=== PATIENT | male | born 1995 | race Two or more races ===

== ENCOUNTER 2020-12-14 23:09 | Emergency (ER) | payer OTHER, MEDICAID, SELFPAY ==
[2020-12-14 23:15] VITALS: BP 129/88; BP 132/88; PULSE 82; PULSE 92; RESP 14; O2SAT 100; O2SAT 99; BMI 20.9
--- NOTE | 2020-12-14 23:30 | ED_ITS ---
HPI - Animal Bite General Chief Complaint: Animal Bite Stated Complaint: DOG BITE Time Seen by Provider: 12/14/20 23:28 Source: patient Mode of arrival: EMS History of Present Illness HPI narrative: This is a 25-year-old male who presents after receiving a stated unprovoked dog bite from a rescue dog that he is unclear as to the vaccination status. He states that animal Control and police arrived and took the dog away from the home. Otherwise, patient is having pain at the site of the dog bites. Related Data Previous Rx's Medication Instructions Recorded doxycycline monohydrate 100 mg PO BID 14 Days #28 cap 12/14/20 Allergies Allergy/AdvReac Type Severity Reaction Status Date / Time amoxicillin Allergy Hives Verified 12/14/20 23:19 Review of Systems Review of Systems: Pertinent positives and negatives as stated in HPI 10 point review of systems otherwise negative. PMFSH Past Medical History Source: nursing notes reviewed Social History Social History Advance Directives: No Advance Directives Information Provided: No Physical Exam Vital Signs: Vital Signs: Last Vital Signs Temp 97.9 F 12/15/20 00:00 Pulse 70 12/15/20 00:00 Resp 18 12/15/20 00:00 BP 118/67 12/15/20 00:00 Pulse Ox 97 12/15/20 00:00 Body Mass Index 20.9 VITAL SIGNS: Reviewed. GENERAL: Well developed, well nourished, in no acute distress. HEAD: Normocephalic/atraumatic, superficial flap laceration noted to the right lower chin that is hemostatic NOSE: Nares patent bilateral OROPHARYNX: no oral lesions noted, posterior pharynx clear NECK: Supple, no adenopathy LUNGS: Normal breath sounds. No adventitious sounds or accessory muscle use. SpO2<97> CARDIOVASCULAR: Regular rate and rhythm without noted murmurs, no JVD or lower extremity edema. ABDOMEN: Soft, non-tender, non-distended with bowel sounds. No rigidity. No guarding. No palpable masses or hernias noted LEFT UPPER EXTREMITY: There are multiple puncture/bite patterson along the left forearm with associated contusion and ecchymosis, full range of motion intact, hemostatic lacerations NEUROLOGIC: Alert and oriented x 4. Strength and sensation to light touch were grossly intact x 4. Course Course Course Narrative: This is a 25-year-old male with history and clinical presentation consistent with dog bite injury to the face and left upper extremity by an unknown vaccinated status. Patient received empiric doxycycline (allergic to amoxicillin) as well as initial rabies immunoglobulin and vaccination. Wounds were approximated without complications please refer to the procedure note for the details. And information was provided to the patient with regards to follow-up rabies vaccination schedule and instructed to return to the emergency department should he develop any fevers, chills, drainage from the sites of the wounds. MDM - Animal Bite Lab Data Result diagrams: 12/15/20 01:43 12/15/20 01:43 Labs: Lab Results 12/15/20 12/15/20 Range/Units 01:43 01:43 WBC 9.5 (4.8-10.8) X10*3/uL RBC 4.42 L (4.60-5.80) X10*6/uL Hgb 14.0 (14.0-18.0) g/dl Hct 40.9 L (42-52) % MCV 92.5 (80-98) fL MCH 31.7 (27.0-33.0) pg MCHC 34.2 (31.0-36.0) g/dl RDW 11.0 (11.0-16.0) % Plt Count 191 (160-400) X10*3/uL MPV 10.2 (9.4-12.4) fL Immature Gran % (Auto) 0.2 (0.0-0.4) % Neut % (Auto) 74.0 H (45-73) % Lymph % (Auto) 17.4 L (20-40) % [place] % (Auto) 7.2 (2-11) % Eos % (Auto) 1.0 (0-4) % Baso % (Auto) 0.2 (0-2) % Lymph # (Auto) 1.7 (1.2-4.9) X10*3/uL [place] # (Auto) 0.7 (0.1-1.2) X10*3/uL Eos # (Auto) 0.1 (0.0-0.4) X10*3/uL Baso # (Auto) 0.0 (0.0-0.2) X10*3/uL Abs Immat Gran (auto) 0.02 (0.00-0.03) X10*3/uL Absolute Neuts (auto) 7.0 (2.0-8.3) X10*3/uL Absolute Nucleated RBC 0.000 (0.0-0.012) X10*3/uL Nucleated RBC % (auto) 0.0 (0.0-0.2) /100WBC Sodium 139 (135-145) mmol/L Potassium 3.9 (3.3-5.1) mmol/l Chloride 104 (96-108) mmol/L Carbon Dioxide 24 (22-29) mmol/L Anion Gap 15 (12-20) BUN 11 (9-16) mg/dL Creatinine 0.81 (0.5-1.4) mg/dL Estim Creat Clear Calc 129.4 Estimated GFR > 60 Random Glucose 93 (60-115) mg/dL Calcium 8.8 (8.4-10.2) mg/dL Total Bilirubin 0.7 (0.0-1.0) mg/dL AST 19 (5-37) U/L ALT 18 (0-40) U/L Alkaline Phosphatase 77 (39-117) U/L Total Protein 6.4 L (6.5-8.0) g/dL Albumin 4.1 (3.5-5.0) g/dL Discharge Plan Discharge Clinical Impression: Rabies contact Dog bite Qualifiers: Encounter type: initial encounter Qualified Code(s): W54.0XXA - Bitten by dog, initial encounter Patient Disposition: Home, Self-Care Instructions: Rabies Immune Globulin (By injection), Rabies Vaccine (By injection), Rabies (ED) Additional Instructions: Please return to the ER if you develop any worsening of pain, fevers, chills, drainage from the bite patterson. Follow-up with your primary care provider or this emergency room for removal of your sutures in 5-7 days. Prescriptions: New doxycycline monohydrate 100 mg capsule 100 mg PO BID 14 Days Qty: 28 RF: 0 Referrals: Physician,Unknown [Primary Care Provider] - 2 days (Final re-evaluation and management for dog bite and rabies treatment started.)
--- NOTE | 2020-12-14 23:39 | XR_ITS ---
EXAMINATION: XR FOREARM, LEFT CLINICAL INFORMATION: Dog bite with pain on movement question radial fracture COMPARISON: None TECHNIQUE: AP and lateral views of the left forearm were obtained. FINDINGS: The bones and soft tissues are normal aside from mild soft tissue swelling around the mid distal third of the forearm. No fracture. No foreign body seen. Imaged portions of the elbow and wrist are unremarkable. XR/XR forearm LT 2V IMPRESSION: No bone abnormality is seen. There is disruption of soft tissues as described above.
[2020-12-15] VITALS: BP 118/67; PULSE 70; RESP 18; TEMP 36.6; O2SAT 97
[2020-12-15] MEDS: Acetaminophen 325 MG TABLET 975 MG PO (00:05)
[2020-12-15] MEDS: Ketorolac Tromethamine 15 MG/ML VIAL IM (00:09)
[2020-12-15] MEDS: Lidocaine HCl 2 % MPF 5 ML VIAL 10 ML INFILTRATI ×2 (00:10→01:02)
[2020-12-15 01:53] LABS: MANUAL DIFF FLAG NO
[2020-12-15 01:55] LABS: Basophils Percent Auto 0.2 % (0-2); Eosinophils Absolute Auto 0.1 X10*3/uL (0.0-0.4); Hematocrit 40.9 % (42-52); Imm Gran Abs Auto 0.02 X10*3/uL (0.00-0.03); Imm Gran Pct Auto 0.2 % (0.0-0.4); Lymphocytes Absolute Auto 1.7 X10*3/uL (1.2-4.9); Lymphocytes Percent Auto 17.4 % (20-40); Mean Corpuscular HGB Conc 34.2 g/dl (31.0-36.0); Mean Corpuscular Hemoglobin 31.7 pg (27.0-33.0); Mean Corpuscular Volume 92.5 fL (80-98); Mean Platelet Volume 10.2 fL (9.4-12.4); Monocytes Absolute Auto 0.7 X10*3/uL (0.1-1.2); Monocytes Percent Auto 7.2 % (2-11); Platelet Count 191 X10*3/uL (160-400); Red Blood Count 4.42 X10*6/uL (4.60-5.80); White Blood Count 9.5 X10*3/uL (4.8-10.8)
[2020-12-15 02:00] VITALS: BP 115/59; PULSE 67; RESP 16; TEMP 36.6; O2SAT 98
[2020-12-15 02:23] LABS: Alanine Aminotransferase 18 U/L (0-40); Albumin Level 4.1 g/dL (3.5-5.0); Alkaline Phosphatase 77 U/L (39-117); Anion Gap 15 (12-20); Aspartate Amino Transferase 19 U/L (5-37); Bilirubin Total 0.7 mg/dL (0.0-1.0); Blood Urea Nitrogen 11 mg/dL (9-16); Calcium 8.8 mg/dL (8.4-10.2); Carbon Dioxide 24 mmol/L (22-29); Chloride 104 mmol/L (96-108); Creatinine Clr Calc Pharmacy 129.4; Estimated Glomerular Filt Rate > 60; Glucose Random 93 mg/dL (60-115); Potassium 3.9 mmol/l (3.3-5.1); Sodium 139 mmol/L (135-145); Total Protein 6.4 g/dL (6.5-8.0)
[2020-12-15] MEDS: Rabies Immune Globulin/PF 1,500 UNIT/5 ML VIAL 1324.48 UNIT IM (02:30)
[2020-12-15] MEDS: Rabies Vaccine (PCEC)/PF 1 ML VIAL IM (03:14)
[2020-12-15 03:19] VITALS: BP 122/71; PULSE 65; RESP 18; O2SAT 98
== END 2020-12-15 03:45 | disposition home or self-care (01) ==
PROVIDERS: Emergency Provider Student in an Organized Health Care Education/Training Program
DX: S51.852A Open bite of left forearm, initial encounter (principal); S01.85XA Open bite of other part of head, initial encounter; S50.12XA Contusion of left forearm, initial encounter; W54.0XXA Bitten by dog, initial encounter; Y93.9 Activity, unspecified; Y92.414 Local residential or business street as the place of occurrence of the external cause; Y99.9 Unspecified external cause status; Z20.3 Contact with and (suspected) exposure to rabies
CPT/HCPCS: 36415; 73090; 80053; 85025; 90375; 90471; 90675; 96372; 99284; J1885

== ENCOUNTER 2020-12-18 15:01 | Emergency (ER) | payer OTHER, MEDICAID, SELFPAY ==
--- NOTE | 2020-12-18 16:03 | ED_ITS ---
HPI - General Adult General Chief complaint: Recheck/Abnormal Lab/Rx <Anita Castro NP - Last Filed: 12/18/20 17:59> Stated complaint: rabies shot <Anita Catsro NP - Last Filed: 12/18/20 17:59> Time Seen by Provider: 12/18/20 15:55 <Anita Castro NP - Last Filed: 12/18/20 17:59> Source: patient <Anita Castro NP - Last Filed: 12/18/20 17:59> Mode of arrival: ambulatory <Anita Castro NP - Last Filed: 12/18/20 17:59> Limitations: no limitations <Anita Castro NP - Last Filed: 12/18/20 17:59> History of Present Illness HPI narrative: 25 yo male here for 2nd rabies shot. Last one 12/15. Per schedule due today. Patient tells me he was unable to follow-up with short stay surgery. <Anita Castro NP - Last Filed: 12/18/20 17:59> Onset (ago): day(s) <Anita Castro NP - Last Filed: 12/18/20 17:59> Associated symptoms: denies other symptoms <Anita Castro NP - Last Filed: 12/18/20 17:59> Related Data Home medications: Previous Rx's Medication Instructions Recorded doxycycline monohydrate 100 mg PO BID 14 Days #28 cap 12/14/20 <Anita Castro NP - Last Filed: 12/18/20 17:59> Allergies/adverse reactions: Allergies Allergy/AdvReac Type Severity Reaction Status Date / Time amoxicillin Allergy Hives Verified 12/14/20 23:19 <Anita Castro NP - Last Filed: 12/18/20 17:59> Review of Systems Review of Systems: Yes all other systems are reviewed and are negative <ANY Gifford Last Filed: 12/18/20 17:59> Constitutional: Constitutional: Reports no additional constitutional complaints, Denies body ache(s), Denies chills, Denies fever(s), Denies headache(s) and Denies weakness <Anita Castro NP - Last Filed: 12/18/20 17:59> Eyes: Eyes: Reports no additional eye complaints and Denies change in vision <Anita Castro NP - Last Filed: 12/18/20 17:59> ENT: Reports system reviewed and no additional complaints, except as documented, Denies dizziness, Denies headache(s), Denies nasal congestion, Denies nasal discharge and Denies neck pain <Anita Castro NP - Last Filed: 12/18/20 17:59> Cardiovascular: Cardiovascular: Reports no additional cardiovascular complaints, Denies chest pain, Denies leg edema and Denies dyspnea <Anita Castro NP - Last Filed: 12/18/20 17:59> Respiratory: Respiratory: Reports no additional respiratory complaints, Denies cough and Denies dyspnea <Anita Castro [employer] - Last Filed: 12/18/20 17:59> Gastrointestinal: Gastrointestinal: Reports no additional gastrointestinal complaints, Denies abdominal pain, Denies diarrhea, Denies nausea and Denies vomiting <Anita Castro NP - Last Filed: 12/18/20 17:59> Genitourinary: Genitourinary: Denies urinary incontinence <Anita Castro NP - Last Filed: 12/18/20 17:59> Musculoskeletal: Musculoskeletal: Reports no additional musculoskeletal complaints, Denies back pain, Denies arthralgias, Denies joint swelling, Denies neck pain, Denies numbness and Denies tingling <Anita Castro NP - Last Filed: 12/18/20 17:59> Integumentary/Breasts: Skin/Breast: Reports system reviewed and no additional complaints, except as docu and Denies rash <Anita Castro NP - Last Filed: 12/18/20 17:59> Neurologic: Reports system reviewed and no additional complaints, except as documented, Denies Abnormal speech present, Denies dizziness, Denies headache(s), Denies numbness, Denies tingling and Denies weakness <Anita Castro NP - Last Filed: 12/18/20 17:59> PMFSH Past Medical History Attestation statement: The following information was validated with the patient. <Anita Castro NP - Last Filed: 12/18/20 17:59> Source: old records reviewed and nursing notes reviewed <Anita Castro NP - Last Filed: 12/18/20 17:59> Social History Social History: Social History Smoking Status: Current every day smoker Smoked in Last 30 Days: No Substance Use Type: Marijuana Advance Directives: No Advance Directives Information Provided: Yes <Anita Castro NP - Last Filed: 12/18/20 17:59> Physical Exam Vital Signs: Vital Signs: Last Vital Signs Temp 98.0 F 12/18/20 16:10 Pulse 61 12/18/20 16:10 Resp 18 12/18/20 16:10 BP 119/55 L 12/18/20 16:10 Pulse Ox 99 12/18/20 16:10 Body Mass Index 20.9 <Anita Castro NP - Last Filed: 12/18/20 17:59> Vital Signs: Last Vital Signs Temp 98.0 F 12/18/20 16:10 Pulse 61 12/18/20 16:10 Resp 18 12/18/20 16:10 BP 119/55 L 12/18/20 16:10 Pulse Ox 99 12/18/20 16:10 Body Mass Index 20.9 <Devonte Gallagher MD - Last Filed: 12/26/20 08:42> Const: General: cooperative, healthy appearing, comfortable and no acute distress <Anita Castro NP - Last Filed: 12/18/20 17:59> Orientation/consciousness: patient oriented x3 <Anita Castro NP - Last Filed: 12/18/20 17:59> Limitations: no limitations <Anita Castro NP - Last Filed: 12/18/20 17:59> HENMT: Head: Yes normal to inspection <Anita Castro NP - Last Filed: 12/18/20 17:59> Ears: hearing grossly normal bilaterally <Anita Castro NP - Last Filed: 12/18/20 17:59> General nose exam: Normal external nose present <Anita Castro NP - Last Filed: 12/18/20 17:59> Face and sinus: Yes normal facial exam <Anita Castro NP - Last Filed: 12/18/20 17:59> Mouth: Normal oral and palatal mucosa present <Anita Castro [employer] - Last Filed: 12/18/20 17:59> Throat: Yes posterior oropharynx normal <Anita Castro [employer] - Last Filed: 12/18/20 17:59> Eyes: General: appearance normal, both eyes and all related structures <Anita Castro [employer] - Last Filed: 12/18/20 17:59> Pupils: Equal, round and reactive pupils present <Anita Castro NP - Last Filed: 12/18/20 17:59> Neck: Neck: Yes normal visual inspection <Anita Castro NP - Last Filed: 12/18/20 17:59> Chest: Chest palpation & inspection: normal inspection of the chest <Anita Castro [employer] - Last Filed: 12/18/20 17:59> Resp: Effort & Inspection: normal respiratory effort <Anita Castro NP - Last Filed: 12/18/20 17:59> Auscultation: clear to auscultation bilaterally <Anita Castro [employer] - Last Filed: 12/18/20 17:59> Cardio: Rate: regular rate <Anita Castro NP - Last Filed: 12/18/20 17:59> Rhythm: regular rhythm <Anita Castro NP - Last Filed: 12/18/20 17:59> Peripheral pulses: Peripheral pulses 2+ throughout <Anita Castro NP - Last Filed: 12/18/20 17:59> GI: Inspection: Yes normal to inspection <Anita Castro NP - Last Filed: 12/18/20 17:59> Palpation (GI): Soft to palpation and nontender <Anita Castro [employer] - Last Filed: 12/18/20 17:59> Auscultation: normal bowel sounds <Anita Castro NP - Last Filed: 12/18/20 17:59> Back/Spine/Pelvis: Thoracic/Lumbar Spine: thoracic and lumbar spine normal to inspection <Anita Castro NP - Last Filed: 12/18/20 17:59> Skin: General skin exam: no rashes or lesions noted <Anita Castro NP - Last Filed: 12/18/20 17:59> Neuro: General: patient oriented x3, no focal motor deficits and normal sensation to monofilament <Anita Castro NP - Last Filed: 12/18/20 17:59> Cranial nerves: Yes Equal, round and reactive pupils present <Anita Castro NP - Last Filed: 12/18/20 17:59> Cognition (Neuro): normal cognition <Anita Castro NP - Last Filed: 12/18/20 17:59> Speech: No Abnormal speech present <Anita Castro NP - Last Filed: 12/18/20 17:59> Gait exam (Neuro): Normal gait present <Anita Castro NP - Last Filed: 12/18/20 17:59> Motor exam (neuro): 5/5 motor strength present throughout <Anita Castro NP - Last Filed: 12/18/20 17:59> Extrem: General: Yes normal to inspection <Anita Castro NP - Last Filed: 12/18/20 17:59> Course Course Course Narrative: Here for second rabies shot. Unable to follow-up with short stay surgery. No complaints. Short stay surgery closed, patient due today so given in the ED. Recommended to follow-up moving forward with short stay surgery. Reviewed worrisome signs/symptoms with patient and when to return to ED. Comfortable with discharge home. <Anita Castro NP - Last Filed: 12/18/20 17:59> I have reviewed the chart <Devonte Gallagher MD - Last Filed: 12/26/20 08:42> Discharge Plan Discharge Clinical Impression: History of rabies vaccination <Anita Castro NP - Last Filed: 12/18/20 17:59> Patient Disposition: Home, Self-Care <Anita Castro NP - Last Filed: 12/18/20 17:59> Instructions: Rabies Vaccine (By injection) <Anita Castro NP - Last Filed: 12/18/20 17:59> Additional Instructions: Call the hospital main number and ask to speak to short stay surgery to schedule your next vaccine. <Anita Castro NP - Last Filed: 12/18/20 17:59> Prescriptions: No Action doxycycline monohydrate 100 mg capsule 100 mg PO BID 14 Days Qty: 28 RF: 0 <Anita Castro NP - Last Filed: 12/18/20 17:59> Referrals: ED Physician,Generic [Physician] - 2 days <Anita Castro NP - Last Filed: 12/18/20 17:59> Interventions: ED Discharge Assessment Last Done: 12/18/20 16:13 <Anita Castro NP - Last Filed: 12/18/20 17:59> Discharge Date/Time: 12/18/20 16:15 <Anita Castro NP - Last Filed: 12/18/20 17:59>
[2020-12-18] MEDS: Rabies Vaccine (PCEC)/PF 1 ML VIAL IM (16:07)
[2020-12-18 16:10] VITALS: BP 119/55; PULSE 61; RESP 18; TEMP 36.7; O2SAT 99; BMI 20.9
== END 2020-12-18 16:15 | disposition home or self-care (01) ==
PROVIDERS: Emergency Provider Emergency Medicine
DX: T14.8XXD Other injury of unspecified body region, subsequent encounter (principal); Z20.3 Contact with and (suspected) exposure to rabies; W64.XXXD Exposure to other animate mechanical forces, subsequent encounter
CPT/HCPCS: 90471; 90675; 99283; 99284

== ENCOUNTER 2020-12-22 10:56 | Outpatient (REF) | payer OTHER, MEDICAID, SELFPAY | END 2020-12-22 10:57 | disposition home or self-care (01) | LOC: HO.MDS 10:56 | PROVIDERS: Visit Provider Student in an Organized Health Care Education/Training Program | DX: Z29.14 Encounter for prophylactic rabies immune globulin (principal); Z20.3 Contact with and (suspected) exposure to rabies | CPT/HCPCS: 90471; 90675 ==

== ENCOUNTER 2020-12-24 12:57 | Emergency (ER) | payer OTHER, MEDICAID, SELFPAY ==
[2020-12-24 13:00] VITALS: BP 117/57; PULSE 77; RESP 17; TEMP 36.6; BMI 20.9
--- NOTE | 2020-12-24 14:35 | ED.RECABL ---
HPI - Recheck/Abnormal Lab/Rx General Chief Complaint: Wound/Laceration Stated Complaint: suture removal Time Seen by Provider: 12/24/20 13:53 Source: patient Mode of arrival: ambulatory Limitations: no limitations History of Present Illness HPI narrative: Dog bite to left upper arm right chin area on 12/14/19 complaints 21 seen here treated with antibiotics in sites sutured given rabies vaccination which he has been getting as scheduled here as instructed for suture removal. Offers no other complaints. MD complaint: suture/staple removal Initial visit (ago): day(s) Symptoms since prior visit: no new symptoms Related Data Previous Rx's Medication Instructions Recorded doxycycline monohydrate 100 mg PO BID 14 Days #28 cap 12/14/20 Allergies Allergy/AdvReac Type Severity Reaction Status Date / Time amoxicillin Allergy Hives Verified 12/14/20 23:19 Review of Systems Review of Systems: Constitutional: No Weight loss, No Fever, No Chills, No Night Sweats, No Fatigue, No Malaise ENT/Mouth: No Hearing loss, No Ear Pain, No Nasal Congestion, No Sinus Pain, No Hoarseness, No sore throat, No Rhinorrhea, No Swallowing Difficulty Eyes: No Eye Pain, N negative Cardiovascular: Negative Respiratory: Negative Gastrointestinal: Negative Genitourinary: Negative Musculoskeletal: No joint pain, No Myalgias, No Joint Swelling Skin: No Skin Lesions, No rash Neuro: No Weakness, No Numbness, No Paresthesias, No Loss of Consciousness, No Dizziness, No Headache Psych: Negative Heme/Lymph: No Bruising, No Bleeding,No Lymphadenopathy Endocrine: Negative Yes all other systems are reviewed and are negative [facility] Social History Social History Smoking Status: Current every day smoker Substance Use Type: Marijuana Advance Directives: No Advance Directives Information Provided: Yes Physical Exam Vital Signs: Vital Signs: Last Vital Signs Temp 98 F 12/24/20 13:00 Pulse 77 12/24/20 13:00 Resp 17 12/24/20 13:00 BP 117/57 L 12/24/20 13:00 Body Mass Index 20.9 Reviewed Const: General: cooperative and healthy appearing; No acute distress or intoxicated appearing Nutritional Appearance: average body habitus Orientation/consciousness: patient oriented x3 HENMT: Head: Yes normal to inspection Ears: hearing grossly normal bilaterally Eyes: General: appearance normal, both eyes and all related structures Visual Chester: normal visual chester by confrontation Resp: Effort & Inspection: normal respiratory effort Cardio: Jugular venous distension: no JVD Skin: General skin exam: no rashes or lesions noted Full body images: 1. Multiple sites with stitches totaling 12. Slight scabbing otherwise no swelling or erythema. 2. 3. 4. Neuro: General: patient oriented x3 Extrem: General: Yes normal to inspection Procedures Procedure Narrative Procedure Narrative: Sites cleaned with alcohol prep wipe and stitches removed with ease fully intact. Total of 12 stitches removed. Six stitches from the right chin area and 6 stitches from the left arm. No sign of abscess, infection. Discharge Plan Discharge Clinical Impression: Encounter for removal of sutures Patient Disposition: Home, Self-Care Instructions: Stitches Removal (ED) Additional Instructions: You had total of 12 stitches removed from the right chin area and the left arm. Site appears to be healing well Finish the course of the antibiotic as prescribed Return if any signs or worsening symptoms Otherwise follow up with her primary care doctor as discussed Thank you Prescriptions: No Action doxycycline monohydrate 100 mg capsule 100 mg PO BID 14 Days Qty: 28 RF: 0 Referrals: Physician,Unknown [Primary Care Provider] - 5 days
== END 2020-12-24 14:40 | disposition home or self-care (01) ==
PROVIDERS: Emergency Provider Internal Medicine
DX: Z48.02 Encounter for removal of sutures (principal)
CPT/HCPCS: 99283